=== PATIENT | female | born 1995 | race Caucasian/White ===

== ENCOUNTER 2018-01-18 13:11 | Outpatient (CLI) | payer MEDICAID ==
[2018-01-18 13:52] LABS: RUPTURE FETAL MEMBRANES NEGATIVE (NEGATIVE)
[2018-01-18 14:27] LABS: ADD MAN DIFF? NO
[2018-01-18 14:28] LABS: ADD UMIC YES; UR AMORPHOUS CRYSTAL FEW /HPF (NONE SEEN); UR ASCORBIC ACID 20 mg/dL (NEGATIVE); UR BACTERIA FEW /HPF (NONE SEEN); UR BILIRUBIN (Dip) NEGATIVE (NEGATIVE); UR BLOOD (Dip) NEGATIVE (NEGATIVE); UR CLARITY CLOUDY (CLEAR); UR COLOR AMBER (YELLOW); UR GLUCOSE (Dip) NEGATIVE (NEGATIVE); UR KETONES (Dip) NEGATIVE (NEGATIVE); UR LEUKOCYTE ESTERASE (Dip) 3+ Leu/ul (NEGATIVE); UR MUCUS MODERATE /HPF (NONE SEEN); UR NITRITE (Dip) NEGATIVE (NEGATIVE); UR RBC 2 /HPF (0-5); UR SPECIFIC GRAVITY (Dip) 1.024 (1.003-1.030); UR SQUAMOUS EPITHELIAL CELL MODERATE /HPF (FEW); UR TOTAL PROTEIN (Dip) NEGATIVE (NEGATIVE); UR UROBILINOGEN (Dip) NEGATIVE (NEGATIVE); UR WBC 25 /HPF (0-5)
[2018-01-18 14:29] LABS: WHITE BLOOD COUNT 12.1 10^3/ul (4.8-10.8)
[2018-01-18 14:29] LABS: BASOPHILS % 0.3 % (0.0-2.0); EOSINOPHILS # 0.4 10^3/ul (0.0-0.5); HEMATOCRIT 34.3 % (37.0-47.0); HEMOGLOBIN 11.5 g/dl (12.0-16.0); LYMPHOCYTES # 3.2 10^3/ul (0.8-2.9); LYMPHOCYTES % 26.2 % (15.0-51.0); MEAN CORPUSCULAR HEMOGLOBIN 28.8 pg (29.0-33.0); MEAN CORPUSCULAR HGB CONC 33.5 g/dl (32.0-37.0); MEAN PLATELET VOLUME 9.9 fl (7.4-10.4); MONOCYTE # 0.6 10^3/ul (0.3-0.9); MONOCYTES % 4.5 % (0.0-11.0); NEUTROPHIL # 7.9 10^3/ul (1.6-7.5); NEUTROPHILS % 65.6 % (39.0-77.0); PLATELET COUNT 256 10^3/UL (140-415); RED BLOOD COUNT 3.99 10^6/ul (4.20-5.40); RED CELL DISTRIBUTION WIDTH 13.5 % (11.5-14.5)
[2018-01-18] MEDS: ACETAMINOPHEN 500 MG TAB PO (15:19)
== END 2018-01-18 16:39 | disposition home or self-care (01) ==
LOC: OBT 13:11 → L-D 13:11 → OBT 16:39
DX: O23.42 Unspecified infection of urinary tract in pregnancy, second trimester (principal); O26.892 Other specified pregnancy related conditions, second trimester; R10.30 Lower abdominal pain, unspecified; M54.9 Dorsalgia, unspecified; Z3A.33 33 weeks gestation of pregnancy
CPT/HCPCS: 76815; 76817; 81001; 84112; 85025

== ENCOUNTER 2018-05-20 22:51 | Inpatient (IN) | payer MEDICAID ==
[2018-05-20] MEDS ORDERED: LACTATED RINGER'S 1,000 ML IV (23:35)
[2018-05-21] MEDS ORDERED: METHYLERGONOVINE 0.2 MG INJ IM
[2018-05-21] MEDS ORDERED: MISOPROSTOL 200 MCG TAB PR
[2018-05-21] MEDS ORDERED: CARBOPROST 250 MCG INJ IM
[2018-05-21] MEDS ORDERED: OXYTOCIN 30 UNITS/LR 500 ML IV
[2018-05-21] MEDS ORDERED: IBUPROFEN 600 MG TAB PO
[2018-05-21] MEDS ORDERED: LIDOCAINE 1% (MPF) 30 ML INJ INJ
[2018-05-21] MEDS ORDERED: OXYCODONE/ACETAMINOPHEN (5/325) TAB PO
[2018-05-21] MEDS: LACTATED RINGER'S 1,000 ML IV ×4 (01:05→23:43)
[2018-05-21 01:32] LABS: ADD MAN DIFF? NO
[2018-05-21 01:38] LABS: WHITE BLOOD COUNT 13.8 10^3/ul (4.8-10.8)
[2018-05-21 01:38] LABS: BASOPHIL # 0.1 10^3/ul (0.0-0.1); BASOPHILS % 0.4 % (0.0-2.0); EOSINOPHILS # 0.3 10^3/ul (0.0-0.5); EOSINOPHILS % 2.2 % (0.0-7.0); HEMATOCRIT 35.5 % (37.0-47.0); HEMOGLOBIN 11.3 g/dl (12.0-16.0); LYMPHOCYTES # 4.1 10^3/ul (0.8-2.9); LYMPHOCYTES % 29.6 % (15.0-51.0); MEAN CORPUSCULAR HGB CONC 31.8 g/dl (32.0-37.0); MEAN CORPUSCULAR VOLUME 84.9 fl (82.0-101.0); MEAN PLATELET VOLUME 10.1 fl (7.4-10.4); MONOCYTE # 0.8 10^3/ul (0.3-0.9); MONOCYTES % 6.1 % (0.0-11.0); NEUTROPHIL # 8.4 10^3/ul (1.6-7.5); NEUTROPHILS % 61.3 % (39.0-77.0); PLATELET COUNT 286 10^3/UL (140-415); RED BLOOD COUNT 4.18 10^6/ul (4.20-5.40); RED CELL DISTRIBUTION WIDTH 14.8 % (11.5-14.5)
[2018-05-21 01:58] LABS: INR 0.86; PROTIME 11.8 Sec (11.9-14.9); PT RATIO 0.9
[2018-05-21 01:59] LABS: PARTIAL THROMBOPLASTIN TIME 24.7 Sec (23.0-35.0)
[2018-05-21 02:28] LABS: HEPATITIS B SURFACE ANTIGEN NEGATIVE (NEGATIVE)
[2018-05-21] MEDS: AMPICILLIN 2 GM/NS (PMX) 100 ML IV (03:07)
[2018-05-21] MEDS ORDERED: AMPICILLIN 1 GM/NS (PMX) 50 ML IV (05:00)
[2018-05-21] MEDS: AMPICILLIN 1 GM/NS (PMX) 50 ML IV ×5 (07:05→23:42)
[2018-05-21 15:00] LABS: RAPID PLASMA REAGIN NONREACTIVE (NR)
[2018-05-22] MEDS: OXYTOCIN 30 UNITS/LR 500 ML IV ×4 (03:06→11:04)
[2018-05-22] MEDS: AMPICILLIN 1 GM/NS (PMX) 50 ML IV (04:46)
[2018-05-22] MEDS: BUTORPHANOL 2 MG INJ IV (05:16)
[2018-05-22] MEDS ORDERED: LIDOCAINE 1% (MPF) 30 ML INJ (05:22)
[2018-05-22] MEDS: LACTATED RINGER'S 1,000 ML IV* ×2 (08:31→16:31)
[2018-05-22] MEDS ORDERED: CARBOPROST 250 MCG INJ IM (09:00)
[2018-05-22] MEDS ORDERED: METHYLERGONOVINE 0.2 MG INJ IM (09:00)
[2018-05-22] MEDS ORDERED: MISOPROSTOL 200 MCG TAB PR (09:00)
[2018-05-22] MEDS ORDERED: DIPHENHYDRAMINE 25 MG CAP PO (09:00)
[2018-05-22] MEDS ORDERED: ZOLPIDEM 5 MG TAB PO (09:00)
[2018-05-22] MEDS ORDERED: MAGNESIUM HYDROXIDE 30ML CUP PO (09:00)
[2018-05-22] MEDS ORDERED: OXYTOCIN 30 UNITS/LR 500 ML IV (09:00)
[2018-05-22] MEDS ORDERED: ACETAMINOPHEN 325 MG TAB PO (09:00)
[2018-05-22] MEDS: HYDROCODONE/APAP (5/325) TAB PO (10:59)
[2018-05-22] MEDS: SENNA/DOCUSATE NA (8.6MG/50MG) TAB PO (10:59)
[2018-05-22] MEDS: BENZOCAINE 20% 56 ML SPRAY TOP (11:01)
[2018-05-22] MEDS: WITCH HAZEL/GLYCERIN PAD PR (11:01)
[2018-05-22] MEDS: LANOLIN 7 GM TUBE TOP (11:02)
[2018-05-22] MEDS: IBUPROFEN 800 MG TAB PO ×3 (12:38→23:33)
[2018-05-23] MEDS: LACTATED RINGER'S 1,000 ML IV* ×2 (04:30→08:31)
[2018-05-23] MEDS: IBUPROFEN 800 MG TAB PO ×4 (05:38→23:38)
[2018-05-23 08:00] LABS: ADD MAN DIFF? NO; BASOPHILS % 0.4 % (0.0-2.0); EOSINOPHILS # 0.3 10^3/ul (0.0-0.5); EOSINOPHILS % 2.5 % (0.0-7.0); HEMATOCRIT 30.6 % (37.0-47.0); HEMOGLOBIN 9.6 g/dl (12.0-16.0); LYMPHOCYTES # 3.8 10^3/ul (0.8-2.9); LYMPHOCYTES % 33.3 % (15.0-51.0); MEAN CORPUSCULAR HGB CONC 31.4 g/dl (32.0-37.0); MEAN CORPUSCULAR VOLUME 86.2 fl (82.0-101.0); MEAN PLATELET VOLUME 10.3 fl (7.4-10.4); MONOCYTE # 0.6 10^3/ul (0.3-0.9); MONOCYTES % 5.6 % (0.0-11.0); NEUTROPHIL # 6.5 10^3/ul (1.6-7.5); NEUTROPHILS % 57.8 % (39.0-77.0); PLATELET COUNT 232 10^3/UL (140-415); RED BLOOD COUNT 3.55 10^6/ul (4.20-5.40); RED CELL DISTRIBUTION WIDTH 14.9 % (11.5-14.5)
[2018-05-23 08:00] LABS: WHITE BLOOD COUNT 11.3 10^3/ul (4.8-10.8)
[2018-05-23] MEDS: SENNA/DOCUSATE NA (8.6MG/50MG) TAB PO (09:00)
[2018-05-24] MEDS: IBUPROFEN 800 MG TAB PO ×2 (05:42→12:05)
[2018-05-24] MEDS ORDERED: MEASLES,MUMPS,RUBELLA VACCINE INJ SC* (09:00)
[2018-05-24] MEDS ORDERED: VARICELLA VACCINE LIVE/PF 1,350 UNIT/0.5 ML ML SC* (09:00)
[2018-05-24] MEDS: DIPHTH/TET/ACEL PERTUSS (ADULT) 0.5 ML VIAL IM* (09:06)
== END 2018-05-24 16:21 | disposition home or self-care (01) | DRG 807 ==
LOC: PP1 05-22 08:28 → OBT 22:51 → L-D 22:52 → OBT 23:21 → L-D 23:21
PROVIDERS: Obstetrics & Gynecology
PROC: 10E0XZZ Delivery of Products of Conception, External Approach (ICD-10-PCS; principal; 2018-05-22)
DX: O80 Encounter for full-term uncomplicated delivery (principal); Z37.0 Single live birth; Z3A.39 39 weeks gestation of pregnancy
CPT/HCPCS: 85025; 85610; 85730; 86592; 86850; 86900; 86901; 87340; 90686; 90715

== ENCOUNTER 2018-12-12 16:50 | Emergency (ER) | payer MEDICAID | END 2018-12-12 20:39 | disposition left against medical advice (07) | LOC: FTE 16:50 | DX: R05 Cough (principal); N64.4 Mastodynia | CPT/HCPCS: 99283; Z7502 ==